=== PATIENT | female | born 1965 | race African-American/Black ===

== ENCOUNTER 2017-03-30 19:36 | Emergency (ER) | payer OTHER ==
[~2017-03-30] VITALS: Ht 182.9 cm; Wt 71.7 kg
[2017-03-30 20:02] VITALS: BP 122/79
[2017-03-30] MEDS ORDERED: Cephalexin 500mg cap ORAL ONE (20:30)
[2017-03-30] MEDS ORDERED: Bactrim DS (160mg/800mg) tab ORAL ONE (20:30)
[2017-03-30] MEDS ORDERED: ERYTHROMYCIN3.5 GM LEFT EYE (20:33)
[2017-03-30] MEDS ORDERED: BACTRIM DS TAB1 EAC1 ORAL (20:33)
[2017-03-30] MEDS ORDERED: CEPHALEXIN500 MG ORAL (20:33)
[2017-03-30 20:37] VITALS: BP 122/79
--- NOTE | 2017-03-30 22:12 | Emergency Room Report ---
History of Present Illness General Chief Complaint: Eye Problems Source: Patient Present Illness [facility] The patient is a 51-year-old female presenting for possible left eye infection. She first noticed a red area on the left face which developed into bump about one week prior. Pain is 6/10 dull ache to this area and is worse with touch. She denies any discharge from the area. She denies any known injury. She also noticed redness of the left upper eyelid which began 2 days ago. She admits to crusting of the eyelids. She admits to itching of this area. She denies any other symptoms including N, V, F, blurred vision, eye discharge, dizziness Allergies: Coded Allergies: No Known Allergies (Unverified , 03/30/17) Patient History Past Medical History: see triage record Pertinent Family History: none Last Menstrual Period: 2015 Now: No : 7 Para: 3 Reviewed Nursing Documentation: PMH: Agreed, PSxH: Agreed Nursing Documentation-PMH Hx Asthma: Yes Review of Systems All Other Systems: negative except mentioned in HPI Physical Exam Vital Signs Date Time Temp Pulse Resp B/P (MAP) Pulse Ox O2 Delivery O2 Flow Rate FiO2 03/30/17 19:55 98.1 64 14 122/79 98 Room Air Sp02 EP Interpretation: reviewed, normal General Appearance: no apparent distress, alert, GCS 15, non-toxic Head: normocephalic, atraumatic Eyes: left eye lid inflammation - upper, bilateral eye PERRL, bilateral eye EOMI ENT: hearing grossly normal, normal pharynx, no angioedema, normal voice Neck: full range of motion, supple/symm/no masses Respiratory: chest non-tender, lungs clear, normal breath sounds, speaking full sentences Cardiovascular #1: regular rate, rhythm, no edema Genitourinary: normal inspection, no CVA tenderness Musculoskeletal: back normal, gait/station normal, normal range of motion, non- tender Neurologic: alert, oriented x3, responsive, motor strength/tone normal, sensory intact, speech normal Psychiatric: judgement/insight normal, memory normal, mood/affect normal, no suicidal/homicidal ideation Skin: rash - L lateral face. 2 cm in diameter indurated abscess. Tender. Lymphatic: no adenopathy Medical Decision Making PA Attestation Dr. Woodward is my supervising physician. Patient management was discussed with my supervising physician Diagnostic Impression: Primary Impression: Abscess Additional Impression: Blepharitis Qualified Codes: H01.004 - Unspecified blepharitis left upper eyelid ER Course The patient is a 51-year-old female presenting for possible left eye infection Differential diagnoses considered but not limited to bacterial conjunctivitis, viral conjunctivitis, blepharitis, hordeolum, abscess, cellulitis PE: NAD HEENT: L upper eyelid has erythema. No injection. PERRL. EOMI.No DC. L lateral face. 2 cm in diameter indurated abscess. Tender. Pt is DC'ed home with prescription for keflex, Bactrim DS, and erythromycin ointment Last Vital Signs Date Time Temp Pulse Resp B/P (MAP) Pulse Ox O2 Delivery O2 Flow Rate FiO2 03/30/17 19:55 98.1 64 14 122/79 98 Room Air Status: improved Disposition: HOME, SELF-CARE Condition: Improved Scripts Trimethoprim/Sulfamethoxazole 160/800* (BACTRIM DS TABLET*) 1 Each Tablet 1 TAB ORAL TWICE A DAY, #14 TAB Prov: MERCED NIELSON.A. 03/30/17 Cephalexin* (KEFLEX*) 500 Mg Capsule 500 MG ORAL EVERY 12 HOURS, #14 CAP 0 Refills Prov: BRANDYANMERCED P.A. 03/30/17 Erythromycin Base (ERYTHROMYCIN*) 3.5 Gm Oint...g. 1 APPLIC LEFT EYE Q12HR, #3.5 GM 0 Refills Prov: BRANDYANMERCED P.A. 03/30/17 Referrals: NOT CHOSEN IPA/MD,REFERRING (PCP) Patient Instructions: Blepharitis, Abscess Additional Instructions: I discussed my findings with the patient. All questions and concerns have been answered. Treatment and medication compliance have been addressed. I advised the patient that they need to follow up with PMD in 3-5 days. Return to ED if symptoms worsen, new symptoms arise, or if needed for any reason. Patient verbalized understanding of discharge instructions. MERCED NIELSON Mar 30, 2017 22:12
== END 2017-03-30 21:41 | disposition home or self-care (01) ==
LOC: EMR 21:41
DX: H00.034 Abscess of left upper eyelid (principal); H01.004 Unspecified blepharitis left upper eyelid; J45.909 Unspecified asthma, uncomplicated
CPT/HCPCS: 99284

== ENCOUNTER 2017-07-03 23:05 | Emergency (ER) | payer OTHER ==
[~2017-07-03] VITALS: Ht 182.9 cm; Wt 72.6 kg
[~2017-07-03 23:05] MED LIST: BACTRIM DS TAB1 EAC1 ORAL; CEPHALEXIN500 MG ORAL; ERYTHROMYCIN3.5 GM LEFT EYE
[2017-07-03] MEDS ORDERED: ROBAXIN-750750 MG PO (23:55)
[2017-07-03] MEDS ORDERED: IBUPROFEN600 MG ORAL (23:55)
[2017-07-04] MEDS ORDERED: Methocarbamol 750mg tab ORAL ONE
[2017-07-04 00:06] VITALS: BP 0/0
--- NOTE | 2017-07-04 00:23 | Emergency Room Report ---
History of Present Illness General Chief Complaint: Back Pain-No Injury Source: Patient Present Illness HPI 51-year-old female walked in with 2 weeks of left-sided back pain radiating to left leg. No trauma, no focal neurological deficits, no weakness no urinary complaints. No history of previous known sciatica, disc protrusion, lower back surgery in the past. Patient has not taken any medication for pain. States unable to go to the ER in the last 2 weeks because she has to be at her living area /building before 6 pM Allergies: Coded Allergies: No Known Allergies (Unverified , 03/30/17) Patient History Past Medical History: none Past Surgical History: none Pertinent Family History: none Last Menstrual Period: last month Now: No Immunizations: UTD Reviewed Nursing Documentation: PMH: Agreed, PSxH: Agreed Nursing Documentation-PMH Hx Asthma: Yes Review of Systems All Other Systems: negative except mentioned in HPI Physical Exam Vital Signs Date Time Temp Pulse Resp B/P (MAP) Pulse Ox O2 Delivery O2 Flow Rate FiO2 07/03/17 23:16 97.5 66 18 96 Room Air Sp02 EP Interpretation: reviewed, normal General Appearance: normal inspection, well appearing, no apparent distress, alert, GCS 15, non-toxic Head: normocephalic, atraumatic Eyes: bilateral eye PERRL, bilateral eye EOMI ENT: normal ENT inspection, hearing grossly normal, normal pharynx, no angioedema, normal voice, TMs + canals normal, uvula midline, moist mucus membranes Neck: normal inspection, full range of motion, supple, thyroid normal, no meningismus, no bony tend Respiratory: normal inspection, lungs clear, normal breath sounds, no rhonchi, no respiratory distress, no retraction, no accessory muscle use, no wheezing, speaking full sentences Cardiovascular #1: regular rate, rhythm, no edema, no JVD, normal capillary refill Gastrointestinal: normal inspection, normal bowel sounds, non tender, soft, no mass, no peritonitis, non-distended, no guarding, no hernia, no pulsatile mass Genitourinary: no CVA tenderness Musculoskeletal: normal inspection, back normal, no calf tenderness, pelvis stable, Gissel's Sign negative, other - + left paravertebral ttp. + SLE raise test on exam Neurologic: normal inspection, alert, oriented x3, responsive, carry out clerk III-XII nml as tested, motor strength/tone normal, cerebellar normal, normal gait, speech normal Psychiatric: normal inspection, judgement/insight normal, mood/affect normal, no suicidal/homicidal ideation, no delusions Skin: normal inspection, normal color, no rash Lymphatic: normal inspection, no adenopathy Medical Decision Making Diagnostic Impression: Primary Impression: Back pain Qualified Codes: M54.42 - Lumbago with sciatica, left side; G89.29 - Other chronic pain ER Course Chronic left back pain with sciatica No focal neuro deficits Afebrile. vitals stable Low suspicion for cord compression Patient agreed to analgesia, muscle relaxer then patient became disruptive in ED , to registration and ED staff Refused to take pain meds Refused to sign paperwork Walked out of ER Last Vital Signs Date Time Temp Pulse Resp B/P (MAP) Pulse Ox O2 Delivery O2 Flow Rate FiO2 07/03/17 23:16 97.5 66 18 96 Room Air Status: improved Disposition: HOME, SELF-CARE Condition: Improved Scripts Ibuprofen* (MOTRIN*) 600 Mg Tablet 600 MG ORAL THREE TIMES A DAY for For Pain for 7 Days, #30 TAB 0 Refills Prov: DEB MCKEON M.D. 07/03/17 Methocarbamol* (ROBAXIN-750*) 750 Mg Tablet 750 MG PO TID for 7 Days, #30 TAB 0 Refills Prov: DEB MCKEON M.D. 07/03/17 Patient Instructions: DEB Pastor M.D. Jul 04, 2017 00:23
== END 2017-07-04 00:06 | disposition home or self-care (01) ==
LOC: EMR 23:36
DX: M54.42 Lumbago with sciatica, left side (principal); J45.909 Unspecified asthma, uncomplicated
CPT/HCPCS: 99283

== ENCOUNTER 2019-02-09 11:49 | Emergency (ER) | payer MEDICAID ==
[~2019-02-09] VITALS: Ht 182.9 cm; Wt 77.1 kg
[~2019-02-09 11:49] MED LIST changes: +ALBUTEROL SULF8.5 GM INH; +IBUPROFEN600 MG ORAL; +NKM; +PROMETHAZINE-C118 M1 ORAL; +ROBAXIN-750750 MG PO; +TAMIFLU75 MG ORAL
[2019-02-09 11:53] VITALS: BP 113/86
[2019-02-09] MEDS ORDERED: ELIQUIS5 MG PO (11:58)
--- NOTE | 2019-02-09 12:03 | NUR ---
ED Nurse Note: Pt came in due to left hip pain that radiates down to her left leg and foot started 02/06/19. Pt stated she might had bumped her left hip on a car door. Pt is AAO x4, ambulates with assistance. No obvious deformity on her left hip/leg and able to move but very painful.
[2019-02-09] MEDS ORDERED: NAPROXEN250 MG ORAL (12:13)
[2019-02-09] MEDS ORDERED: LIDODERM700 M1 TOPIC (12:13)
--- NOTE | 2019-02-09 12:13 | Emergency Room Report ---
History of Present Illness General Chief Complaint: Pain Source: Patient Present Illness HPI 53-year-old female presents with left hip pain after hitting it against the car door, patient was amatory afterwards, patient endorses a sharp ache worse with movement alleviated with rest, severity is moderate, intermittent patient is requesting strong pain medication Allergies: Coded Allergies: No Known Allergies (Unverified , 03/30/17) Patient History Past Medical History: see triage record Social History: Reports: smoking Last Menstrual Period: October, Now: No : 7 Para: 3 Reviewed Nursing Documentation: PMH: Agreed; PSxH: Agreed Nursing Documentation-PMH Past Medical History: No History, Except For Hx Cardiac Problems: No - PE Hx Asthma: Yes Review of Systems All Other Systems: negative except mentioned in HPI Physical Exam Vital Signs Date Time Temp Pulse Resp B/P (MAP) Pulse Ox O2 Delivery O2 Flow Rate FiO2 02/09/19 11:53 98.1 72 17 113/86 (95) 96 Room Air Sp02 EP Interpretation: reviewed, normal General Appearance: well appearing, no apparent distress, alert Head: normocephalic, atraumatic Eyes: bilateral eye PERRL, bilateral eye EOMI ENT: uvula midline, moist mucus membranes Neck: supple, thyroid normal, supple/symm/no masses Respiratory: lungs clear, no respiratory distress, no retraction, no accessory muscle use Cardiovascular #1: normal peripheral pulses, regular rate, rhythm, no edema, no gallop, no murmur Gastrointestinal: non tender, soft, no guarding, no rebound Musculoskeletal: normal inspection, other - Tenderness to palpation left hip, range of motion intact 2+ popliteal 2+ PT DP, sensation grossly intact fires EHL , 5 out of 5 strength plantar dorsiflexion at the ankle, 5 out of 5 flexion extension at the knee, no obvious deformity Neurologic: alert, oriented x3 Psychiatric: mood/affect normal Skin: no rash, warm/dry Medical Decision Making Diagnostic Impression: Primary Impression: Contusion of muscle ER Course 53-year-old female, presents with contusion to the left thigh after running into the door, patient was worried that she might have a new blood clot, patient has been taking her Eliquis every day. Patient most likely with a contusion to the left thigh Physical exam is negative for any leg swelling, [id number] ultrasound shows no clots in the femoral vein Will disposition patient home with return precautions Other X-Ray Diagnostic Results Other X-Ray Diagnostic Results : X-Ray ordered: AP/left hip pelvis # of Views/Limited Vs Complete: 2 View Indication: Pain EP Interpretation: Yes Interpretation: no fractures Impression: No acute disease Electronically Signed by: Karson Pena MD CT/MRI/US Diagnostic Results CT/MRI/US Diagnostic Results : Impression [id number] ultrasound of the left leg negative for DVT Last Vital Signs Date Time Temp Pulse Resp B/P (MAP) Pulse Ox O2 Delivery O2 Flow Rate FiO2 02/09/19 11:53 98.1 72 17 113/86 96 Room Air Disposition: HOME, SELF-CARE Condition: Stable Scripts Lidocaine Patch* (Lidoderm Patch*) 1 Each Adh..patch 1 PATCH TOPIC DAILY, #7 PATCH 0 Refills Patch(es) may remain in place for up to 12 hours in any 24-hour period. Prov: Karson Pena MD 02/09/19 Naproxen* (NAPROSYN*) 250 Mg Tablet 250 MG ORAL BID PRN for For Pain, #20 TAB 0 Refills Prov: Karson Pena MD 02/09/19 Referrals: [facility] Patient Instructions: Contusion, [id number] Additional Instructions: The patient was provided with discharge instructions, notified to follow-up with a primary care doctor and or specialist in the next 24-48 hours, and to return to the ED if they have worsening of their symptoms. Please note that this report is being documented using [employer] technology. This can lead to erroneous entry secondary to incorrect interpretation by the dictating instrument. Karson Pena MD Feb 09, 2019 12:13
[2019-02-09] MEDS ORDERED: Acetaminophen 500mg (ES) tab ORAL ONE (12:15)
[2019-02-09] MEDS ORDERED: Methocarbamol 750mg tab ORAL ONE (12:15)
[2019-02-09] MEDS ORDERED: Ketorolac 60mg Inj IM ONE (12:15)
--- NOTE | 2019-02-09 13:20 | NUR ---
ED Nurse Note: ERMD at bedside for US.
--- NOTE | 2019-02-09 13:23 | Diagnostic Imaging Report ---
EXAM: XR Left Hip With Pelvis When Performed, 2 or 3 Views CLINICAL HISTORY: PAIN TECHNIQUE: Two or three views of the left hip, with pelvis when performed. COMPARISON: No relevant prior studies available. FINDINGS: Bones joints: No acute fracture. Soft tissues: No radiodense foreign body. IMPRESSION: No fracture or dislocation.
[2019-02-09] MEDS ORDERED: ROBAXIN-750750 MG PO (13:46)
--- NOTE | 2019-02-09 13:49 | NUR ---
ED Nurse Note: pt requested to speak to ERMD prior to sign on discharge paper for additional concern about her health. STEPHANIED at bedside.
[2019-02-09 13:54] VITALS: BP 125/79
--- NOTE | 2019-02-09 13:56 | NUR ---
ED Nurse Note: Pt cleared by health care Provider for discharge. DC instructions/prescription was given and explained to pt and verbalized understanding of teachings. All medical deviecs such as ID band removed. Pt is AAO x4, ambulatory and left with all personal belongings.
== END 2019-02-09 13:55 | disposition home or self-care (01) ==
LOC: EMR 12:17
DX: S70.12XA Contusion of left thigh, initial encounter (principal); J45.909 Unspecified asthma, uncomplicated; Z86.711 Personal history of pulmonary embolism; F17.200 Nicotine dependence, unspecified, uncomplicated; Z79.01 Long term (current) use of anticoagulants; W22.09XA Striking against other stationary object, initial encounter; Y92.810 Car as the place of occurrence of the external cause
CPT/HCPCS: 73510; 96372; Z7502; 73502; 99284